=== PATIENT | male | born 1950 | race Caucasian/White ===

== ENCOUNTER 2016-12-28 09:55 | Outpatient (CLI) | payer MEDICARE, OTHER ==
--- NOTE | 2016-12-28 16:59 | CT ---
CT LUMBAR SPINE NONCONTRAST: 12/28/16 HISTORY: 66-year-old male with lumbar radiculopathy, M54.16. COMPARISON: 04/21/13. FINDINGS: There are five lumbar type vertebrae. Right pedicle screws at L2, L4, L5 and S1, connected by vertic al interlocking seng. Left pedicle screws at L2, L3, L4, L5, and S1, with vertical interlocking seng. Levoscoliosis with apex of curvature at L1-2. Ankylosis across the disc spaces, between the end plat es, especially on the right side, at L2-3, L3-4, and right and left at L4-5. Bilateral facet joints are fused from L2-3 through L5-S1. Severe degenerative disc disease at T12-L1 and L1-2, asymmetrical ly worse on the right, concave side of the scoliosis. Vertebral body heights are maintained. Kyphosi s with apex at L1-2. No major spondylolisthesis. Findings by individual levels are as follows: T12-L1: Broad based disc-osteophytic bar complex causes severe central spinal canal stenosis. Severe right degenerative facet changes, and the concavity of the scoliosis, result in severe right neural foraminal stenosis. Moderate left degenerative facet changes. No left sided neural foraminal stenos is. L1-2: The left pedicle screw distal tip is within the disc space, as was previously the case. Other than the loosening around the distal tip at the superior end plate of L2, there is no evidence of elam rdware loosening elsewhere involving the bilateral screws. Severe right degenerative facet hypertrop hy (with ankylosis) plus right lateral component of disc/osteophyte complex, and the concavity of th e scoliosis, result in moderate to severe right neural foraminal stenosis. Calcified or ossified lig amentum flavum and facet hypertrophy, plus broad based disc/osteophytic bar complex, result in sever e central spinal canal stenosis. No left sided neural foraminal stenosis. L2-3: Broad based osteophytic bar encroaches upon the anterior aspect of the spinal canal. Moderate to severe central spinal canal stenosis. Mild bilateral neural foraminal stenosis. L3-4: Mild bilateral neural foraminal stenosis. Diffuse disc-osteophytic bar complex encroaches upon the spinal canal, causing moderate central stenosis. L4-5: Midline laminectomy defect. No significant central spinal canal stenosis. Left sided fused onl ay bone graft at posterior elements. Calcification or ossification in the left posterolateral and la teral epidural space causes left lateral recess stenosis. Mild right neural foraminal stenosis. No l eft neural foraminal stenosis. L5-S1: No central stenosis. Mild bilateral neural foraminal stenosis. When compared to 04/21/13, the scoliosis is somewhat worse. Degenerative disc disease at T12-L1 is wo rse. IMPRESSION: 1. Fusion with pedicle screws and posterior element onlay bone grafts, from L2-3 through L5-S1. 2. Severe central spinal canal stenosis at T12-L1 and L1-2. Moderate-severe central spinal durga l stenosis at L2-3. 3. High grade right neural foraminal stenosis at T12-L1 and L1-2. 4. Levoscoliosis. 5. Severe degenerative disc at T12-L1 and L1-2. 6. The left L2 pedicle screw distal tip is in the L-2 disc space, as was previously the case. POS: [facility]
== END 2016-12-28 09:56 | disposition home or self-care (01) ==
LOC: TBSIIMAG 09:55
PROVIDERS: ATTEND Neurological Surgery
DX: M54.16 Radiculopathy, lumbar region (principal); M51.35 Other intervertebral disc degeneration, thoracolumbar region; M48.05 Spinal stenosis, thoracolumbar region; Z98.1 Arthrodesis status
CPT/HCPCS: 72131

== ENCOUNTER 2017-09-03 07:17 | Outpatient (CLI) | payer MEDICARE, OTHER | END 2017-09-03 07:18 | disposition home or self-care (01) | LOC: BICMRI 07:17 | PROVIDERS: ATTEND Nurse Practitioner Family | DX: M54.12 Radiculopathy, cervical region (principal); M99.81 Other biomechanical lesions of cervical region; M25.78 Osteophyte, vertebrae | CPT/HCPCS: 72141 ==

== ENCOUNTER 2017-10-09 10:18 | Outpatient (CLI) | payer MEDICARE, OTHER ==
[2017-10-09 11:43] LABS: Anion Gap 15 mmol/L (10-20); BUN (Urea Nitrogen) 19 mg/dL (8.4-25.7); Calc. Creatinine Clearance 0 mL/min (70-130); Calcium 9.7 mg/dL (7.8-10.44); Carbon Dioxide 26 mmol/L (23-31); Chloride 103 mmol/L (98-107); Estimated GFR-MDRD Greater than 90; Glucose 118 mg/dL (80-115); Potassium 4.3 mmol/L (3.5-5.1); Sodium 140 mmol/L (136-145)
== END 2017-10-09 10:19 | disposition home or self-care (01) ==
LOC: LABBT 10:18
PROVIDERS: ATTEND Neurological Surgery
DX: Z01.818 Encounter for other preprocedural examination (principal); M54.12 Radiculopathy, cervical region
CPT/HCPCS: 80048; 93005; 93010

== ENCOUNTER 2017-10-10 07:34 | Inpatient (IN) | payer MEDICARE, OTHER ==
[2017-10-09 10:36] VITALS: BMI 25.4
--- NOTE | 2017-10-09 22:40 | HP ---
Mr. Booker is known to us for previous ACDF procedure presents now with continued posterior neck pain and interscapular pains. He has a new MRI revealing foraminal stenosis bilaterally at C4-C5, which is between his 2 prior ACDFs. He has had multiple adverse or epidural steroid injections at Dr. Rinku tobar's office and one of which seemed to actually have helped substantially, notes move forward wi th surgery if possible to perhaps provide a permanent correction for some of these pains. PAST MEDICAL HISTORY: Significant for gastroesophageal reflux disease, hypertension, hyperlipidemia, chronic pain syndrome. ALLERGIES: MORPHINE, FENTANYL, LYRICA, CYMBALTA, LISINOPRIL. CURRENT MEDICATIONS: Thurman, Opana ER, methocarbamol, Nexium, hydrochlorothiazide, amlodipine, losart an, zolpidem, [place] Thyroid, Proventil, triamcinolone, atorvastatin, aspirin, Citrucel. PHYSICAL EXAMINATION: GENERAL: The patient is alert and oriented x3. EXTREMITIES: Upper extremity motor exam limited in the right upper extremity, but at the level of th e shoulder of bilateral upper extremities, he exhibits normal strength though he has pain and limb we akness. He also has limited cervical range of motion secondary to pain. ASSESSMENT: Cervical stenosis and radiculopathy. PLAN: Dr. Mckoy met with the patient, reviewed imaging and advocated for a posterior cervical C4-C5 decompression and bilateral foraminotomies. H he explained to the patient the risks, benefits, and a lternatives to the procedure. The patient expressed understanding and would like to move forward wit h surgery as discussed. I do believe the patient is mentally competent and capable of making medical decisions for himself and we will move forward with surgery as planned.
[2017-10-10] MEDS ORDERED: Bupivacaine HCl 0.5%/Epinephrine 1:200,000/PF 30 ml Vial ONE (09:22)
[2017-10-10] MEDS ORDERED: Scopolamine 1.5 mg/72 hour Patch ONE (10:42)
[2017-10-10] MEDS ORDERED: Ketamine 50 MG/ML VIAL ONE (10:44)
[2017-10-10] MEDS ORDERED: HYDROmorphone 0.5 MG/0.5 ML SYRINGE ONE ×8 (10:45→14:16)
[2017-10-10] MEDS ORDERED: CEFAZOLIN/Water 2 GM/20 ML SYRINGE ONE (10:53)
[2017-10-10] MEDS ORDERED: Ketorolac Tromethamine 30 MG/ML VIAL IVP PRN ×2 (11:07→18:50)
[2017-10-10] MEDS ORDERED: Promethazine HCl 25 MG/ML VIAL ONE (11:23)
[2017-10-10] MEDS ORDERED: HYDROcodone/Acetaminophen 10/325 mg Tablet PO PRN ×2 (12:08)
[2017-10-10] MEDS ORDERED: Ondansetron HCl/PF 4 MG/2 ML Vial IVP PRN (12:08)
[2017-10-10] MEDS ORDERED: Acetaminophen 325 MG TAB PO PRN (12:08)
[2017-10-10] MEDS ORDERED: Mag-Al 1200 mg/1200 mg/30 ML UDCUP PO PRN (12:08)
[2017-10-10] MEDS ORDERED: Bisacodyl 10 MG SUPP PR PRN (12:08)
[2017-10-10] MEDS ORDERED: diphenhydrAMINE 50 MG/ML VIAL IVP PRN (12:08)
[2017-10-10] MEDS ORDERED: PROVENTIL INHALER 6.7 G (200 INHALATIONS) INH PRN (12:13)
[2017-10-10] MEDS ORDERED: SENNOSIDES 15 MG PO PRN (12:13)
[2017-10-10] MEDS ORDERED: AMOXICILLIN PO SCH (12:15)
[2017-10-10] MEDS ORDERED: Loratadine 10 MG TAB PO PRN (12:30)
[2017-10-10] MEDS ORDERED: Meperidine HCl/PF 25 MG/ML VIAL ONE ×2 (12:44→12:50)
[2017-10-10] MEDS ORDERED: Ketorolac Tromethamine 30 MG/ML VIAL ONE (12:48)
[2017-10-10] MEDS ORDERED: Triamcinolone 0.1% Cream 15 GM TUBE TOP PRN (13:00)
[2017-10-10] MEDS ORDERED: PHENYLEPHRINE-NS 100 MCG/ML 10 ML SYRINGE ONE (13:11)
[2017-10-10] MEDS ORDERED: ePHEDrine/0.9% NaCl/PF SYRINGE 50 mg/10 ml ONE (13:11)
[2017-10-10] MEDS ORDERED: Glycopyrrolate 0.2 MG/ML 5 ML SYRINGE ONE (13:11)
[2017-10-10] MEDS ORDERED: Ondansetron HCl/PF 4 MG/2 ML Vial ONE (13:11)
[2017-10-10] MEDS ORDERED: PROPOFOL 200 MG/20 ML VIAL ONE (13:11)
[2017-10-10] MEDS ORDERED: Lidocaine 1% PF 5 ML VIAL ONE (13:11)
[2017-10-10] MEDS ORDERED: CEFAZOLIN/Water 2 GM/20 ML SYRINGE SLOW IVP SCH (14:00)
--- NOTE | 2017-10-10 14:30 | OP ---
DATE OF PROCEDURE: 10/10/2017 SURGEON: Vishnu Mckoy M.D. AIRPLANE PILOT CHIEF: Roby Frazier PA-C. INDICATION: Pain. DIAGNOSES: Cervical radiculopathy with cervical stenosis. PROCEDURES: C4-5 laminectomy and C4-5 bilateral foraminotomy. ANESTHESIA: General. TECHNIQUE: The patient was brought into the operating room and placed under general anesthesia. He was flipped from a supine to prone position on the operating room table. A linear incision was plann ed over the C4-5 region. After prepping and draping and after an appropriate operative pause, the in cision was created. The soft tissues were swept away from midline. Self-retaining retractors were p laced. After confirming the appropriate level with C-arm fluoroscopy, Adson rongeurs, a high-speed c utting drill bit, 1 and 2 mm Kerrisons were used to perform a laminectomy in C4-5 and extended our la minectomy to encompass foraminotomies over the exiting C5 nerve roots. The wound was irrigated. Hem ostasis was maintained throughout. The wound was then closed in anatomic layers and a pressure dress ing was applied. There were no known procedural complications.
[2017-10-10] MEDS: Sodium Chloride 0.9% 1,000 ML IV SCH ×2 (16:07→16:16)
[2017-10-10] MEDS: Meperidine HCl/PF 25 MG/ML VIAL SLOW IVP PRN ×3 (16:13→23:47)
[2017-10-10] MEDS: Morphine IR Tab 15 MG TAB PO SCH ×3 (16:16→23:00)
[2017-10-10] MEDS: Methocarbamol 500 MG TAB PO SCH (21:56)
[2017-10-10] MEDS: Senokot S 8.6-50 MG TAB PO SCH (21:57)
[2017-10-10] MEDS: Zolpidem Tartrate 5 MG TAB PO SCH (21:57)
[2017-10-10] MEDS: CEFAZOLIN/Water 2 GM/20 ML SYRINGE SLOW IVP SCH (21:58)
[2017-10-10] MEDS: RED YEAST RICE PO SCH (22:38)
[2017-10-11] MEDS: Sodium Chloride 0.9% 1,000 ML IV SCH ×2 (01:25→14:31)
[2017-10-11] MEDS: Meperidine HCl/PF 25 MG/ML VIAL SLOW IVP PRN ×4 (03:35→14:45)
[2017-10-11] MEDS: CEFAZOLIN/Water 2 GM/20 ML SYRINGE SLOW IVP SCH (03:54)
[2017-10-11 05:27] LABS: Anion Gap 12 mmol/L (10-20); BUN (Urea Nitrogen) 15 mg/dL (8.4-25.7); Calc. Creatinine Clearance 123 mL/min (70-130); Calcium 8.5 mg/dL (7.8-10.44); Carbon Dioxide 26 mmol/L (23-31); Chloride 105 mmol/L (98-107); Estimated GFR-MDRD Greater than 90; Glucose 93 mg/dL (80-115); Potassium 3.7 mmol/L (3.5-5.1); Sodium 139 mmol/L (136-145)
[2017-10-11 05:34] LABS: #Eosinphils 0.2 thou/uL (0.0-0.7); #Lymphocytes 2.2 thou/uL (1.20-3.40); #Monocytes 1.1 thou/uL (0.11-0.59); #Neutrophils 7.2 thou/uL (1.40-6.50); %Basophils 0.4 % (0.0-1.0); %Eosinophils 1.6 % (0.0-10.0); %Lymphocytes 20.3 % (21.0-51.0); %Monocytes 10.6 % (0.0-10.0); %Neutrophils 67.1 % (42.0-75.0); Hemoglobin 12.4 g/dL (14.0-18.0); Mean Corpuscular HGB CONC 33.8 g/dL (32.0-36.0); Mean Corpuscular Hemoglobin 35.7 pg (27.0-31.0); Mean Platelet Volume 8.4 fL (7.4-10.4); Platelet Count 170 thou/uL (130-400); Red Blood Cell (RBC) Count 3.46 mill/uL (4.70-6.10); White Blood Cell (WBC) Count 10.7 thou/uL (4.8-10.8)
[2017-10-11] MEDS: Thyroid 60 MG TAB PO SCH (06:09)
[2017-10-11] MEDS: Morphine IR Tab 15 MG TAB PO SCH ×2 (06:09→14:44)
[2017-10-11] MEDS ORDERED: Metamucil PACK PO PRN (09:00)
[2017-10-11] MEDS: Fish Oil 1,000 MG CAP PO SCH ×2 (10:27→21:03)
[2017-10-11] MEDS: Cyanocobalamin (Vitamin B-12) 1,000 MCG TAB PO SCH (10:27)
[2017-10-11] MEDS: Methocarbamol 500 MG TAB PO SCH ×2 (10:27→20:58)
[2017-10-11] MEDS: Losartan 25 MG TAB PO SCH (10:28)
[2017-10-11] MEDS: Hydrochlorothiazide 25 MG TAB PO SCH (10:28)
[2017-10-11] MEDS: Atorvastatin Calcium 20 MG TAB PO SCH (10:28)
[2017-10-11] MEDS: Amlodipine 10 MG TAB PO SCH (10:28)
[2017-10-11] MEDS: RED YEAST RICE PO SCH ×2 (10:29→21:08)
[2017-10-11] MEDS: Alfuzosin 10 MG TABDR...ER PO SCH (13:41)
[2017-10-11] MEDS ORDERED: Dexamethasone 10 MG in Sodium Chloride 0.9% 50 ML IVPB SCH (13:45)
[2017-10-11] MEDS: HYDROmorphone 10 mg/100 ml CADD IV PRN (17:50)
[2017-10-11] MEDS: Zolpidem Tartrate 5 MG TAB PO SCH (21:00)
[2017-10-11] MEDS: Senokot S 8.6-50 MG TAB PO SCH (21:03)
[2017-10-12] MEDS: Sodium Chloride 0.9% 1,000 ML IV SCH ×2 (04:17→17:38)
[2017-10-12] MEDS: Thyroid 60 MG TAB PO SCH (05:32)
[2017-10-12] MEDS: Losartan 25 MG TAB PO SCH (08:38)
[2017-10-12] MEDS: Fish Oil 1,000 MG CAP PO SCH ×2 (08:39→20:10)
[2017-10-12] MEDS: Cyanocobalamin (Vitamin B-12) 1,000 MCG TAB PO SCH (08:39)
[2017-10-12] MEDS: Atorvastatin Calcium 20 MG TAB PO SCH (08:40)
[2017-10-12] MEDS: RED YEAST RICE PO SCH ×2 (11:28→20:49)
[2017-10-12] MEDS: Alfuzosin 10 MG TABDR...ER PO SCH (12:14)
[2017-10-12] MEDS: Hydrochlorothiazide 25 MG TAB PO SCH (12:14)
[2017-10-12] MEDS: Methocarbamol 500 MG TAB PO SCH ×2 (12:15→20:11)
[2017-10-12] MEDS: Amlodipine 10 MG TAB PO SCH (12:19)
[2017-10-12] MEDS: HYDROmorphone 10 mg/100 ml CADD IV PRN (16:50)
[2017-10-12] MEDS: Senokot S 8.6-50 MG TAB PO SCH (20:10)
[2017-10-12] MEDS: Zolpidem Tartrate 5 MG TAB PO SCH (20:11)
[2017-10-13] MEDS: Sodium Chloride 0.9% 1,000 ML IV SCH ×2 (04:59→10:03)
[2017-10-13] MEDS: Thyroid 60 MG TAB PO SCH (05:31)
[2017-10-13] MEDS ORDERED: Dexamethasone 4 MG TAB PO SCH (08:30)
[2017-10-13] MEDS: Cyanocobalamin (Vitamin B-12) 1,000 MCG TAB PO SCH (08:57)
[2017-10-13] MEDS: Hydrochlorothiazide 25 MG TAB PO SCH (08:58)
[2017-10-13] MEDS: Losartan 25 MG TAB PO SCH (08:58)
[2017-10-13] MEDS: Alfuzosin 10 MG TABDR...ER PO SCH (08:58)
[2017-10-13] MEDS: Fish Oil 1,000 MG CAP PO SCH ×2 (08:59→20:04)
[2017-10-13] MEDS: Amlodipine 10 MG TAB PO SCH (08:59)
[2017-10-13] MEDS: Atorvastatin Calcium 20 MG TAB PO SCH (08:59)
[2017-10-13] MEDS: RED YEAST RICE PO SCH ×2 (09:04→22:07)
[2017-10-13] MEDS: Dexamethasone 4 MG TAB PO SCH ×3 (09:04→20:06)
[2017-10-13] MEDS: Methocarbamol 500 MG TAB PO SCH ×2 (10:02→20:06)
--- NOTE | 2017-10-13 13:32 | PRG ---
DATE OF SERVICE: 10/13/2017 SUBJECTIVE: Mr. Bailey is now on the third day of his hospital stay following posterior cervical la minectomy pain continues to be an issue. Unfortunately for him, we had him on the PROPAGATION WORKER for the last 2 4 hours, which initially was helping, but now seems to not be doing as much. We will try some steroi ds and attempt a different type of muscle relaxers little bit more. He has been up and walking pretty much all over the hospital property. I would really like to try to get him home today if we can get his pain more reasonably controlled. They are up for this as well and preparations at the house for his return to home after discharge. Incision continues to look great. No concerns. N o drainage, dehiscence or erythema well approximated, dry. Overall, doing well, just pain control, i t is the biggest concern at the moment. Roby Frazier PA-C. dictating for Dr. Mckoy.
[2017-10-13] MEDS: HYDROmorphone 10 mg/100 ml CADD IV PRN (17:59)
[2017-10-13] MEDS: Zolpidem Tartrate 5 MG TAB PO SCH (20:05)
[2017-10-13] MEDS: Senokot S 8.6-50 MG TAB PO SCH (20:05)
[2017-10-14] MEDS: Thyroid 60 MG TAB PO SCH (05:54)
[2017-10-14] MEDS ORDERED: Meperidine HCl/PF 25 MG/ML VIAL SLOW IVP PRN (08:10)
[2017-10-14] MEDS ORDERED: Diazepam 2 MG TAB PO PRN (08:13)
[2017-10-14] MEDS: Methocarbamol 500 MG TAB PO SCH ×2 (09:16→21:05)
[2017-10-14] MEDS: Cyanocobalamin (Vitamin B-12) 1,000 MCG TAB PO SCH (09:17)
[2017-10-14] MEDS: Losartan 25 MG TAB PO SCH (09:17)
[2017-10-14] MEDS: Atorvastatin Calcium 20 MG TAB PO SCH (09:18)
[2017-10-14] MEDS: Amlodipine 10 MG TAB PO SCH (09:19)
[2017-10-14] MEDS: Alfuzosin 10 MG TABDR...ER PO SCH (09:19)
[2017-10-14] MEDS: Fish Oil 1,000 MG CAP PO SCH ×2 (09:19→21:08)
[2017-10-14] MEDS: Hydrochlorothiazide 25 MG TAB PO SCH (09:19)
[2017-10-14] MEDS: Dexamethasone 4 MG TAB PO SCH ×2 (09:20→21:09)
[2017-10-14] MEDS: Sodium Chloride 0.9% 1,000 ML IV SCH ×2 (09:35→23:12)
[2017-10-14] MEDS: RED YEAST RICE PO SCH ×2 (09:35→22:19)
[2017-10-14] MEDS: HYDROcodone/Acetaminophen 10/325 mg Tablet PO PRN ×3 (12:50→21:08)
[2017-10-14] MEDS: Morphine ER 30 MG TAB PO SCH ×2 (13:58→22:06)
[2017-10-14] MEDS: Meperidine HCl/PF 25 MG/ML VIAL SLOW IVP PRN ×3 (15:28→23:35)
--- NOTE | 2017-10-14 16:27 | PRG ---
DATE OF SERVICE: 10/14/2017 SUBJECTIVE: Mr. Booker is now fourth day postop posterior cervical laminectomy. He has had signific ant pain control over the last 3 days afternoon and evening where he did quite well, he is back to having some more significant pain issues again, did start Decadron yesterday and it seemed to be helping. Discussed with he and his that we will likely discontinue the ELECTRO TECH this morning and go back to his standard medications and likely try to get him home this afternoon if he is handling that reasonably well and then follow up with the . They are understanding and receptive to this rut a.
--- NOTE | 2017-10-14 18:58 | PRG ---
DATE OF SERVICE: 10/14/2017 Mr. Booker is status post cervical laminectomy and foraminotomy for central and foraminal stenosis. His postoperative course has been a challenging one from postoperative pain perspective. He has been preoperatively on high dose narcotics for predominantly a phantom limb pain which has been a challenge to control over many, many years. In the postoperative period, he was on a CONTENT DESIGNER and his pain was being controlled by the Anesthesia Service. We now transitioned him from the CONTENT DESIGNER to his home based oral pain regimen, which consist of morphine and [place] for breakthrough. He continues to struggle with pain today. He continues to ambulate quite frequently. He states his muscle spasm a slightly less now than it was preoperatively. He still has some fairly significant pain which is within the intrascapular space. I believe most of his pain is post-surgical pain that will improve with time. He is also on steroids in an effort to reduce inflammation. Mr. Booker continues to struggle with pain. This was somewhat of an anticipated post-surgical pain struggle given his preoperative requirements on pain medicines and longstanding pain problem. We will continue to work with him. We will try to transition him to an oral regimen which works. Once we feel comfortable that we can maintain adequate pain control, we will look towards discharging him home. As an aside, I had a discussion with his family regarding potential need for a DREZ procedure in the future given his persistent phantom limb pain. We will make arrangements for referral to a center that performs that procedure in the future. DONN
[2017-10-14] MEDS: Zolpidem Tartrate 5 MG TAB PO SCH (21:06)
[2017-10-14] MEDS: Senokot S 8.6-50 MG TAB PO SCH (21:07)
[2017-10-15] MEDS: Meperidine HCl/PF 25 MG/ML VIAL SLOW IVP PRN (03:26)
[2017-10-15] MEDS: HYDROcodone/Acetaminophen 10/325 mg Tablet PO PRN ×4 (03:26→12:35)
[2017-10-15] MEDS: Morphine ER 30 MG TAB PO SCH (06:28)
[2017-10-15] MEDS: Thyroid 60 MG TAB PO SCH (06:29)
[2017-10-15] MEDS: Methocarbamol 500 MG TAB PO SCH (09:10)
[2017-10-15] MEDS: Dexamethasone 4 MG TAB PO SCH (09:10)
[2017-10-15] MEDS: Cyanocobalamin (Vitamin B-12) 1,000 MCG TAB PO SCH (09:11)
[2017-10-15] MEDS: Losartan 25 MG TAB PO SCH (09:11)
[2017-10-15] MEDS: Fish Oil 1,000 MG CAP PO SCH (09:11)
[2017-10-15] MEDS: Hydrochlorothiazide 25 MG TAB PO SCH (09:11)
[2017-10-15] MEDS: Atorvastatin Calcium 20 MG TAB PO SCH (09:12)
[2017-10-15] MEDS: Amlodipine 10 MG TAB PO SCH (09:12)
[2017-10-15] MEDS: Alfuzosin 10 MG TABDR...ER PO SCH (09:12)
[2017-10-15] MEDS: RED YEAST RICE PO SCH (09:17)
[2017-10-15] MEDS: Sodium Chloride 0.9% 1,000 ML IV SCH (11:40)
[2017-10-15 12:22] VITALS: BP 142/74; TEMP 98.5
== END 2017-10-15 13:33 | disposition home or self-care (01) | DRG 517 ==
LOC: SDC 07:34 → 2SW 15:06 → OBSVTOIN 15:06 → SJJU 10-11 16:44
PROVIDERS: ADMIT Neurological Surgery; ATTEND Neurological Surgery
PROC: 01N10ZZ Release Cervical Nerve, Open Approach (ICD-10-PCS; principal; 2017-10-10)
DX: M48.02 Spinal stenosis, cervical region (principal); M54.12 Radiculopathy, cervical region; K21.9 Gastro-esophageal reflux disease without esophagitis; I10 Essential (primary) hypertension; E78.5 Hyperlipidemia, unspecified; G89.4 Chronic pain syndrome
CPT/HCPCS: 36415; 76001; 80048; 85025; 93005; 93010; 96374; J0131; J0670; J1100; J1170; J1885; J2001; J2175; J2405; J2550; J2704; J7050; J8540

== ENCOUNTER 2017-12-25 12:10 | Outpatient (CLI) | payer MEDICARE, OTHER ==
--- NOTE | 2017-12-25 15:48 | CT ---
CT CERVICAL SPINE: History: Status post cervical spine fusion. Technique: Axial images were obtained with coronal and sagittal reconstructions. FINDINGS: Images demonstrate ACDF with fusion of the C3-4 vertebral bodies using ACDF plate and screws. There i s also a second area of fusion involving the C5, C6, and C7 vertebrae. Both C7 right and left intraos seous screws have migrated anteriorly compressing the posterior wall of the esophagus. IMPRESSION: 1. C3-4 as well as C5-6 and C7 CDF fusion levels. No evidence of acute cervical spine fracture seen. 2. Anterior migration of the C7 vertebral screws. POS: [facility]
== END 2017-12-25 12:11 | disposition home or self-care (01) ==
LOC: BICCT 12:10
DX: Z47.89 Encounter for other orthopedic aftercare (principal); Z98.1 Arthrodesis status
CPT/HCPCS: 72125

== ENCOUNTER 2023-04-30 09:29 | Outpatient (CLI) | payer MEDICARE, OTHER ==
[2023-04-30 10:58] LABS: #Eosinphils 0.2 10x3/uL (0.0-0.5); #Monocytes 1.1 10x3/uL (0.0-1.1); #Neutrophils 4.8 10x3/uL (1.5-8.4); %Basophils 0.4 % (0.0-2.0); %Eosinophils 2.4 % (0.0-6.0); %Lymphocytes 26.5 % (18.0-47.0); %Monocytes 12.6 % (0.0-10.0); %Neutrophils 57.9 % (40.0-75.0); Hematocrit 40.3 % (38.8-50.0); Hemoglobin 14.6 g/dL (13.5-17.5); Mean Corpuscular HGB CONC 36.2 g/dL (32.0-36.0); Mean Corpuscular Hemoglobin 35.4 pg (27.0-33.0); Mean Corpuscular Volume 97.8 fl (81.2-95.1); Mean Platelet Volume 10.9 fl (7.4-10.4); Platelet Count 243 10x3/uL (150-450); RBC Distribution Width 13.4 % (11.5-14.5); Red Blood Cell (RBC) Count 4.12 10x6/uL (4.32-5.72); White Blood Cell (WBC) Count 8.3 10x3/uL (3.5-10.5)
[2023-04-30 11:44] LABS: Anion Gap 15 mmol/L (10-20); BUN (Urea Nitrogen) 19 mg/dL (8.4-25.7); Calc. Creatinine Clearance 0 mL/min (70-130); Calcium 9.4 mg/dL (7.8-10.44); Carbon Dioxide 26 mmol/L (23-31); Chloride 102 mmol/L (98-107); Estimated GFR 96; Glucose 120 mg/dL (83-110); Potassium 3.8 mmol/L (3.5-5.1); Sodium 139 mmol/L (136-145)
== END 2023-04-30 09:30 | disposition home or self-care (01) ==
LOC: LABBT 09:29
PROVIDERS: ATTEND Orthopaedic Surgery
DX: Z01.818 Encounter for other preprocedural examination (principal); M12.812 Other specific arthropathies, not elsewhere classified, left shoulder
CPT/HCPCS: 80048; 85025; 93005; 93010

== ENCOUNTER 2023-05-03 06:36 | Inpatient (IN) | payer MEDICARE, OTHER ==
[2023-04-30 09:53] VITALS: BMI 30.7
[2023-05-03] MEDS ORDERED: Tranexamic Acid 1,000 MG/10 ML VIAL ONE (07:12)
[2023-05-03] MEDS ORDERED: Sodium Chloride 0.9% 100 ML ONE ×2 (07:12→09:36)
[2023-05-03] MEDS ORDERED: Vancomycin (BATCH) 1.5 GM/300 ML BAG ONE (07:12)
[2023-05-03] MEDS ORDERED: Midazolam HCl 2 mg/2 ml Vial ONE (07:59)
[2023-05-03] MEDS ORDERED: fentaNYL 50 mcg/mL 1 mL Vial ONE (07:59)
[2023-05-03] MEDS ORDERED: Ropivacaine 0.5% HCl/PF (150 MG/30 ML VIAL) ONE (08:00)
[2023-05-03] MEDS ORDERED: Lidocaine 1% (PF) 30 ML VIAL ONE (08:00)
[2023-05-03] MEDS ORDERED: PROPOFOL 20 ML ONE (08:40)
[2023-05-03] MEDS ORDERED: fentaNYL PF 100 MCG/2 ML SYRINGE ONE (08:40)
[2023-05-03] MEDS ORDERED: Lidocaine 1% PF 5 ML VIAL ONE (08:41)
[2023-05-03] MEDS ORDERED: Rocuronium Bromide 10 MG/ML (10ML VIAL) ONE (08:41)
[2023-05-03] MEDS ORDERED: HYDROmorphone 0.5 MG/0.5 ML SYRINGE ONE ×3 (08:45→13:17)
[2023-05-03] MEDS ORDERED: HYDROcodone/Acetaminophen 10/325 mg Tablet PO PRN ×2 (09:08)
[2023-05-03] MEDS ORDERED: diphenhydrAMINE 25 MG CAP PO PRN (09:12)
[2023-05-03] MEDS ORDERED: HYDROmorphone 2 MG/ML VIAL ONE (09:22)
[2023-05-03] MEDS ORDERED: HYDROmorphone 0.5 MG/0.5 ML SYRINGE SLOW IVP PRN (09:36)
[2023-05-03] MEDS ORDERED: CEFAZOLIN 2 GM VIAL ONE (09:36)
[2023-05-03] MEDS ORDERED: Zolpidem Tartrate 5 MG TAB PO PRN (09:45)
[2023-05-03] MEDS ORDERED: Ondansetron PF 4 MG/2 ML Vial IVP PRN (09:45)
[2023-05-03] MEDS ORDERED: Promethazine HCl 25 MG/ML VIAL IM PRN ×2 (09:45→10:41)
[2023-05-03] MEDS ORDERED: Ropivacaine 0.2% 550 ML 550 ML NERVE BLCK SCH (09:45)
[2023-05-03] MEDS ORDERED: Phenylephrine 10 MG/ML VIAL ONE (10:39)
[2023-05-03] MEDS ORDERED: Meperidine HCl/PF 25 MG/ML VIAL SLOW IVP PRN (10:41)
[2023-05-03] MEDS ORDERED: Ondansetron HCl/PF 4 MG/2 ML Vial IVP PRN (10:41)
[2023-05-03] MEDS ORDERED: HYDROmorphone 2 MG/ML VIAL SLOW IVP PRN (10:41)
[2023-05-03] MEDS ORDERED: Dexamethasone 4 mg/ml Vial ONE (10:48)
[2023-05-03] MEDS ORDERED: Ondansetron PF 4 MG/2 ML Vial ONE (10:48)
[2023-05-03] MEDS ORDERED: Ketorolac Tromethamine 30 MG (1 mL) VIAL ONE (10:48)
[2023-05-03] MEDS ORDERED: SUGAMMADEX SODIUM 200 MG/2 ML VIAL ONE (11:20)
[2023-05-03] MEDS ORDERED: Ketorolac Tromethamine 30 MG (1 mL) VIAL IVP SCH (12:00)
[2023-05-03] MEDS: HYDROcodone/Acetaminophen 10/325 mg Tablet PO SCH (12:50)
[2023-05-03] MEDS: Ketorolac Tromethamine 30 MG (1 mL) VIAL IVP SCH (12:52)
[2023-05-03] MEDS: Methocarbamol 500 MG TAB PO SCH (14:41)
[2023-05-03] MEDS ORDERED: Methocarbamol 500 MG TAB PO SCH (15:00)
[2023-05-03] MEDS: traMADol HCl 50 MG TAB PO PRN (17:15)
[2023-05-03] MEDS: CEFAZOLIN 2 GM in Sodium Chloride 0.9% 100 ML IVPB SCH (17:16)
[2023-05-03] MEDS: Vancomycin (BATCH) 1.5 GM in Premix 1 BAG IVPB SCH (19:59)
[2023-05-03] MEDS: Famotidine 20 MG TAB PO SCH (20:01)
[2023-05-03] MEDS: Senokot S 8.6-50 MG TAB PO SCH (20:01)
[2023-05-03] MEDS: hydrALAZINE 25 MG TAB PO SCH (20:02)
[2023-05-03] MEDS ORDERED: ZOLPIDEM TARTRATE 12.5 MG PO SCH (21:00)
[2023-05-04] MEDS: Levothyroxine Sodium 75 MCG TAB PO SCH (05:10)
[2023-05-04] MEDS: HYDROcodone/Acetaminophen 10/325 mg Tablet PO PRN (08:50)
[2023-05-04] MEDS: Glimepiride 1 MG TAB PO SCH (08:52)
[2023-05-04] MEDS: Hydrochlorothiazide 25 MG TAB PO SCH (08:53)
[2023-05-04] MEDS: Aspirin Chewable 81 MG TAB PO SCH (08:54)
[2023-05-04] MEDS: Atorvastatin Calcium 20 MG TAB PO SCH (08:55)
[2023-05-04] MEDS: Amlodipine 10 MG TAB PO SCH (08:55)
[2023-05-04] MEDS: traMADol HCl 50 MG TAB PO PRN (16:46)
[2023-05-05] MEDS: Calcium Carbonate 500 MG ChewTAB PO PRN (12:27)
[2023-05-06] MEDS: Polyethylene Glycol 3350 17 GM Packet PO SCH (10:10)
[2023-05-07] MEDS: Polyethylene Glycol 3350 17 GM Packet PO SCH (08:58)
[2023-05-07 11:44] VITALS: BP 120/81; TEMP 98.5
== END 2023-05-07 11:58 | disposition home or self-care (01) | DRG 483 ==
LOC: SDC 06:36 → SURG A 09:15 → OBSVTOIN 05-05 11:03
PROVIDERS: ADMIT Orthopaedic Surgery; ATTEND Orthopaedic Surgery
PROC: 0RRK00Z Replacement of Left Shoulder Joint with Reverse Ball and Socket Synthetic Substitute, Open Approach (ICD-10-PCS; principal; 2023-05-03)
DX: M12.812 Other specific arthropathies, not elsewhere classified, left shoulder (principal); I10 Essential (primary) hypertension; E03.9 Hypothyroidism, unspecified; K21.9 Gastro-esophageal reflux disease without esophagitis; K59.00 Constipation, unspecified; N40.0 Benign prostatic hyperplasia without lower urinary tract symptoms; Z96.641 Presence of right artificial hip joint; Z96.642 Presence of left artificial hip joint; Z96.652 Presence of left artificial knee joint; Z86.711 Personal history of pulmonary embolism; Z89.201 Acquired absence of right upper limb, unspecified level; Z98.1 Arthrodesis status
CPT/HCPCS: 36416; A4306; C1713; C1776; J1100; J1170; J1885; J2001; J2250; J2371; J2405; J2704; J2795; J3010; J3370; J3490